=== PATIENT | female | born 1970 | race Hispanic/Latino ===

== ENCOUNTER 2021-07-23 15:12 | Emergency (ER) | payer OTHER, SELFPAY ==
[2021-07-23] MEDS ORDERED: Iopamidol-370 76% 500 ML 1 ML ONE (15:15)
[2021-07-23 21:23] LABS: Anion Gap 14 mmol/L (10-20); BUN (Urea Nitrogen) 10 mg/dL (9.8-20.1); Calc. Creatinine Clearance 0 mL/min (70-130); Carbon Dioxide 25 mmol/L (22-29); Chloride 104 mmol/L (98-107); Potassium 4.8 mmol/L (3.5-5.1); Sodium 138 mmol/L (136-145)
[2021-07-23 21:24] LABS: ALT (SGPT) 43 U/L (8-55); AST (SGOT) 51 U/L (5-34); Albumin 4.3 g/dL (3.5-5.0); Alkaline Phosphatase 90 U/L (40-110); Bilirubin, Total 0.3 mg/dL (0.2-1.2); Calcium 9.4 mg/dL (7.8-10.44); Globulin 2.9 g/dL (2.4-3.5); Glucose 133 mg/dL (70-105); Protein, Total 7.2 g/dL (6.0-8.3); Troponin I Less than 0.010 ng/mL (< 0.028)
[2021-07-23 21:25] LABS: %Lymphocytes 12.2 % (21.0-51.0); %Monocytes 2.2 % (0.0-10.0); %Neutrophils 85.6 % (42.0-75.0); Hemoglobin 14.5 g/dL (12.0-16.0); Mean Corpuscular HGB CONC 33.1 g/dL (32.0-36.0); Mean Corpuscular Hemoglobin 30.6 pg (27.0-31.0); Mean Corpuscular Volume 92.3 fL (78.0-98.0); Mean Platelet Volume 7.8 fL (7.4-10.4); Platelet Count 212 thou/uL (130-400); RBC Distribution Width 11.8 % (11.5-14.5); Red Blood Cell (RBC) Count 4.74 mill/uL (4.20-5.40); White Blood Cell (WBC) Count 5.3 thou/uL (4.8-10.8)
[2021-07-23 21:26] LABS: #Lymphocytes 0.6 thou/uL (1.20-3.40); #Monocytes 0.1 thou/uL (0.11-0.59); #Neutrophils 4.5 thou/uL (1.40-6.50); %Eosinophils 0.1 % (0.0-10.0)
== END 2021-07-23 22:19 | disposition home or self-care (01) ==
LOC: ERS 15:12
DX: U07.1 COVID-19 (principal); J12.82 Pneumonia due to coronavirus disease 2019
CPT/HCPCS: 71045; 71275; 80053; 84484; 85025; Q9967